=== PATIENT | female | born 1995 | race Hispanic/Latino ===

== ENCOUNTER 2022-10-07 13:34 | Emergency (ER) | payer OTHER ==
[2022-10-07 16:50] LABS: Bacteria/HPF 4+ HPF (None Seen); Bilirubin Negative (Negative); Blood, Urine 3+ (Negative); Clarity Turbid (Clear); Glucose, Urine (Dipstick) Normal (Negative); Ketone, Urine 80 mg/dL (Negative); Leukocyte 500 Leu/uL (Negative); Nitrite Negative (Negative); Protein, Urine (Dipstick) 100 mg/dL (Neg-Trace); Specific Gravity, Urine 1.034 (1.002-1.036); Urobilinogen Normal mg/dL (Less than 2); WBC/HPF Greater than 50 HPF (0-3)
[2022-10-07 16:51] LABS: Transitional Epithelial 0-3 HPF (None Seen)
[2022-10-07 16:52] LABS: Pregnancy Test - Urine (BHCG) Negative (Negative); Pregu Control Background? CLEAR/WHITE (CLR/WHITE); Pregu Control Bar Appear? YES (CONTROL BAR); Specific Gravity 1.034 (1.002-1.036)
[2022-10-07] MEDS ORDERED: diphenhydrAMINE 50 MG/ML VIAL ONE (17:34)
[2022-10-07] MEDS ORDERED: Metoclopramide HCl 10 MG/2 ML VIAL ONE (17:34)
[2022-10-07 17:46] LABS: SARS-CoV-2 NAA Rapid Test Not Detected (NotDetected)
== END 2022-10-07 18:28 | disposition home or self-care (01) ==
LOC: ERS 13:34
DX: N39.0 Urinary tract infection, site not specified (principal); R51.9 Headache, unspecified; R11.10 Vomiting, unspecified; Z20.822 Contact with and (suspected) exposure to COVID-19
CPT/HCPCS: 81003; 81015; 81025; 96372; 99284; J1200; J2765

== ENCOUNTER 2023-09-20 11:56 | Emergency (ER) | payer OTHER ==
[2023-09-20] MEDS ORDERED: Ibuprofen 200 MG TAB ONE (12:18)
[2023-09-20] MEDS ORDERED: Ondansetron ODT 4 MG TAB ONE (12:18)
[2023-09-20 13:12] LABS: SARS-CoV-2 NAA Rapid Test Not Detected (NotDetected)
[2023-09-20] MEDS ORDERED: Bicillin LA 1.2 MILLION UNITS/2 ML SYRINGE ONE (13:35)
[2023-09-20] MEDS ORDERED: Acetaminophen 500 MG TAB ONE (13:46)
== END 2023-09-20 13:51 | disposition home or self-care (01) ==
LOC: ERS 11:56
DX: J02.0 Streptococcal pharyngitis (principal); Z20.822 Contact with and (suspected) exposure to COVID-19
CPT/HCPCS: 87430; 96372; 99284; J0561; Q0162

== ENCOUNTER 2024-04-23 14:27 | Emergency (ER) | payer OTHER ==
[2024-04-23] MEDS ORDERED: Ketorolac Tromethamine 30 MG (1 mL) VIAL ONE (16:41)
[2024-04-23] MEDS ORDERED: Acetaminophen 500 MG TAB ONE (16:41)
[2024-04-23] MEDS ORDERED: Ondansetron ODT 4 MG TAB ONE (16:42)
[2024-04-23 17:28] LABS: Bacteria/HPF 4+ HPF (None Seen); Bilirubin Negative (Negative); Blood, Urine 1+ (Negative); CAUTI Indications for Culture Dysuria,urgency,freq; Clarity Turbid (Clear); Glucose, Urine (Dipstick) Normal (Negative); Ketone, Urine Negative (Negative); Leukocyte 250 Leu/uL (Negative); Nitrite 2+ (Negative); Protein, Urine (Dipstick) 20 mg/dL (Neg-Trace); RBC/HPF 0-3 HPF (0-3); Specific Gravity, Urine 1.027 (1.002-1.036); Squamous Epithelial 0-3 HPF (0-3); Urobilinogen Normal mg/dL (Less than 2); WBC/HPF 21-50 HPF (0-3); pH, Urine 6.5 (5.0-9.0)
[2024-04-23 17:30] LABS: Pregnancy Test - Urine (BHCG) Negative (Negative); Pregu Control Background? CLEAR/WHITE (CLR/WHITE); Pregu Control Bar Appear? YES (CONTROL BAR); Specific Gravity 1.027 (1.002-1.036)
[2024-04-23 17:31] LABS: Urine Culture Reflex Yes Yes
== END 2024-04-23 18:19 | disposition home or self-care (01) ==
LOC: ERS 14:27
DX: N39.0 Urinary tract infection, site not specified (principal); N94.6 Dysmenorrhea, unspecified
CPT/HCPCS: 81001; 81025; 87077; 87086; 87186; 96372; 99283; J1885; Q0162